=== PATIENT | male | born 1985 | race African-American/Black ===

== ENCOUNTER 2016-11-28 10:42 | Emergency (ER) | payer MEDICAID ==
[~2016-11-28] VITALS: Ht 170.2 cm; Wt 70.3 kg
[2016-11-28 12:06] VITALS: BP 119/70
== END 2016-11-28 12:58 | disposition home or self-care (01) ==
LOC: ER 10:44
DX: R56.9 Unspecified convulsions (principal); F17.200 Nicotine dependence, unspecified, uncomplicated; F15.10 Other stimulant abuse, uncomplicated
CPT/HCPCS: 99283; A4606; Z7610

== ENCOUNTER 2019-12-14 10:40 | Emergency (ER) | payer BC, MEDICAID ==
[~2019-12-14] VITALS: Ht 170.2 cm; Wt 76.2 kg
[2019-12-14] MEDS ORDERED: LEVETIRACETAM (250 MG) 250 MG TABLET PO ONE ×2 (10:58→11:00)
--- NOTE | 2019-12-14 10:58 | NUR ---
PATIENT A/OX4, REFUSES TO HAVE AN IV INSERTION. PATIENT STS HE'S SCARED OF NEEDLES. EXPLAINED RISKS AND BENEFITS, DR. DC MADE AWARE.
[2019-12-14] MEDS ORDERED: LEVETIRACETAM (500MG) 1,000 MG in IV NS 0.9% 100 ML IV SCH (11:00)
[2019-12-14] MEDS ORDERED: IV NS 0.9% 1,000 ML IV ONE (11:00)
--- NOTE | 2019-12-14 11:51 | NUR ---
PATIENT A/OX4, BREATHING EVEN AND UNLABORED, NO SOB NOTED, NEEDS ATTENDED, KEPT COMFORTABLE. AMBULATORY WITH STEADY GAIT. PROVIDED CLOTHES. Patient discharged to home in stable condition. Written and verbal after care instructions given. Patient verbalizes understanding of instruction.
[2019-12-14 11:52] VITALS: BP 113/65
--- NOTE | 2019-12-14 11:53 | NUR ---
Patient given written and verbal discharge instructions. Patient verbalizes understanding of instructions. Patient is ambulatory with steady gait. Refuses offer of fdc placement. Patient given list of available shelters in surrounding area.
== END 2019-12-14 11:54 | disposition home or self-care (01) ==
LOC: ER 10:50
DX: G40.909 Epilepsy, unspecified, not intractable, without status epilepticus (principal); R41.0 Disorientation, unspecified; Z60.2 Problems related to living alone
CPT/HCPCS: J1953; J7030

== ENCOUNTER 2020-03-15 10:44 | Emergency (ER) | payer BC, OTHER ==
[~2020-03-15] VITALS: Ht 180.3 cm; Wt 94.8 kg
--- NOTE | 2020-03-15 10:55 | NUR ---
[id number] for witnessed seizure. no noted trauma. 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 Patient a/ox4, breathing even and unlabored, no sob noted. Seizure precaution observed.
--- NOTE | 2020-03-15 11:17 | NUR ---
Patient refused iv line, and blood draw. Explained risks and benefits, still refused. Dr. Antonio made aware and spoke to the patient. Patient taken to CT.
--- NOTE | 2020-03-15 11:18 | NUR ---
PATIENT TAKEN TO CT.
[2020-03-15] MEDS ORDERED: LEVETIRACETAM (250 MG) 250 MG TABLET PO ONE ×2 (11:28→11:30)
[2020-03-15] MEDS ORDERED: LEVETIRACETAM (500MG) 500 MG in IV NS 0.9% 100 ML IV ONE (11:30)
[2020-03-15] MEDS ORDERED: IV NS 0.9% 1,000 ML BAG IV ONE (11:30)
--- NOTE | 2020-03-15 11:57 | NUR ---
Patient discharged to home in stable condition. Written and verbal after care instructions given. Patient verbalizes understanding of instruction. Pt ambulatory with a steady gait. Homeless waiver signed by the patient. Pt provided with a meal
[2020-03-15 11:59] VITALS: BP 125/83
== END 2020-03-15 12:00 | disposition home or self-care (01) ==
LOC: ER 10:56
DX: G40.909 Epilepsy, unspecified, not intractable, without status epilepticus (principal); R94.31 Abnormal electrocardiogram [ECG] [EKG]; Z60.2 Problems related to living alone
CPT/HCPCS: 70450; 93005; 99284; J1953; J7030